=== PATIENT | male | born 1965 | race Caucasian/White ===

== ENCOUNTER 2021-05-09 17:00 | Emergency (ER) | payer MEDICARE ==
[2021-05-09 18:52] LABS: HEMOGLOBIN 13.6 gm/dl (14.0-17.5); RED BLOOD COUNT 4.38 M/UL (4.20-5.50); WHITE BLOOD COUNT 7.6 K/UL (4.5-11.0)
[2021-05-09 19:37] LABS: BUN/CREATININE RATIO 13 (0-10)
== END 2021-05-09 21:30 | disposition left against medical advice (07) ==
LOC: ER1 17:00 → EDBD 17:00 → ER1 21:30
DX: R07.9 Chest pain, unspecified (principal); I25.10 Atherosclerotic heart disease of native coronary artery without angina pectoris; I10 Essential (primary) hypertension; N17.9 Acute kidney failure, unspecified; E87.5 Hyperkalemia; F17.200 Nicotine dependence, unspecified, uncomplicated; Z86.73 Personal history of transient ischemic attack (TIA), and cerebral infarction without residual deficits
CPT/HCPCS: 71045; 80053; 82550; 82553; 83874; 84484; 85025; 93005; 99285; Q9967